=== PATIENT | female | born 1985 | race Caucasian/White ===

== ENCOUNTER 2022-02-01 14:23 | Day surgery (SDC) | payer OTHER ==
[~2022-02-01] VITALS: Ht 170.2 cm; Wt 58.3 kg
--- NOTE | ~2022-02-01 | OR ---
[facility] [address], [place] [address] Draft DATE OF OPERATION: SURGEON: Celestino Heart DO PREOPERATIVE DIAGNOSES: 1. Right adnexal mass. 2. Possible right ovarian torsion. POSTOPERATIVE DIAGNOSES: 1. Right endometrioma. 2. Stage IV endometriosis. PROCEDURE PERFORMED: Laparoscopic right ovarian cystotomy. TEACHING MANAGER: Saad Hutton MD ANESTHESIA: General. ESTIMATED BLOOD LOSS: 10 mL. FINDINGS: Normal external genitalia with normal clitoris, urethral meatus, bilateral [place]'s, and Bartholin's. Normal vagina and cervix. On bimanual exam, retroflexed uterus with minimal movement of the pelvic organs. Right adnexal mass consistent with findings on the ultrasound. On laparoscopy, the patient with extensive endometriosis with dense deep infiltrating endometrial implants throughout the abdomen and pelvis. Implants include on the diaphragm, bowel, appendix and pelvis with obliterated cul-de-sac. The patient with a large right endometrioma with no evidence of ovarian torsion. Left ovary nearly completely scarred, adherent to the colon and uterus. Endometrioma was completely drained and hemostatic at the end of the procedure. COMPLICATIONS: None. INDICATIONS: Ms. Loaiza is a pleasant 36-year-old, G0, P0 white female who presented to the emergency department with acute exacerbation of chronic pelvic pain with severe 10/10 PATIENT NAME: APOLINAR HARRIS OPERATIVE REPORT DATE OF : 83 REPORT #: [id number] PHYSICIAN: CELESTINO HEART DO PCP: [facility] REPORT IS CONFIDENTIAL AND NOT TO BE RELEASED WITHOUT AUTHORIZATION [facility] [address], [place] [address] Draft pain for nearly 1 week. Pain started approximately four days after the onset of her last period. The patient has a long history of dysmenorrhea and dyspareunia. Ultrasound demonstrated a large right ovarian mass consistent with endometrioma or hemorrhagic cyst with concern for ovarian torsion. The patient was consented for laparoscopy and risks, benefits, and alternatives were discussed in detail with the patient. The patient understands and wished to proceed with the procedure. TECHNIQUE: The patient was taken to the operating room. A time-out was performed to confirm correct patient and correct procedure. General anesthesia was adequately established. The patient was prepped and draped in the dorsal lithotomy position with her feet in Yellofin stirrups. ICPs were on and running. No preoperative antibiotics were indicated and the patient received 5000 units of heparin preoperatively. A Mcmillan catheter was inserted and after performance of bimanual exam demonstrated the above findings. An Allis clamp was placed on the anterior lip of the cervix and the cervix was gently dilated using Hegar dilators. A Hulka clamp was placed and attention was turned to the abdomen. A 2 cm below the umbilicus was infiltrated with 0.25% Marcaine with epinephrine and a curvilinear incision approximately 2-3 cm in length was made with an 11 blade. Incision was carried down to the fascia, which was grasped with hemostats, elevated and entered sharply with Metzenbaum scissors. Stay sutures of 0 Vicryl were placed in the inferior and superior edge of the fascial incision and the peritoneum was entered bluntly. Chely operative port was then placed and pneumoperitoneum easily established. Operative scope was placed and survey of the abdomen and pelvis was performed that demonstrated significant dense deep infiltrating endometriosis throughout the abdomen and pelvis including the diaphragm bilaterally, bowel, appendix, pelvic peritoneum, bladder and pelvis. Cul-de-sac was obliterated. Right ovary with mass consistent with endometrioma with no evidence of torsion. The left ovary was nearly completely buried in scar tissue and endometriosis involving the left adnexum, the colon and the uterus. An assist port was placed in the left lower quadrant under direct visualization without complication. Again, the right ovary was not torsed and pelvic organs were densely scarred and adherent. Decision was made to proceed with cystotomy. Laparoscopic tony were used to carefully create cystotomy with monopolar energy with careful attention to follow the course of the surgical tony to ensure well away from the other pelvic organs and bowel. The endometrioma was opened and copious amounts of chocolate colored endometrioma fluid spilled into the pelvis. The endometrioma was irrigated and all cyst contents were suctioned. The cyst was irrigated and a small amount of oozing was noted along the cystotomy edge. This was made hemostatic with judicious use of monopolar cautery with careful attention to monitor the length of the graspers used to perform monopolar cautery. The pelvis was copiously irrigated to ensure that all endometrioma cyst contents were removed. Photographic survey was performed to help surgical planning in the future. Pneumoperitoneum was reduced. Trocars were removed and fascia was reapproximated using 0 Vicryl in a running nonlocked PATIENT NAME: APOLINAR HARRIS OPERATIVE REPORT DATE OF : 83 REPORT #: [id number] PHYSICIAN: CELESTINO HEART DO PCP: [facility] REPORT IS CONFIDENTIAL AND NOT TO BE RELEASED WITHOUT AUTHORIZATION [address] [address] Draft manner. Skin was reapproximated using 4-0 Monocryl. The Hulka clamp was removed and the cervix was found to be hemostatic. The Mcmillan catheter was removed. The patient was taken to the PACU in good and stable condition. Sponge, needle, instrument counts were correct x2 at the end of the procedure. Dr. Hutton was present and participated in all portions of the procedure. Celestino Heart DO JDW/MODL /[id number] Copies: ~ PATIENT NAME: APOLINAR HARRIS OPERATIVE REPORT DATE OF : 83 REPORT #: [id number] PHYSICIAN: CELESTINO HEART DO PCP: [facility] REPORT IS CONFIDENTIAL AND NOT TO BE RELEASED WITHOUT AUTHORIZATION
--- NOTE | ~2022-02-01 | PREHP ---
[facility] [address], [place] [address] Draft ADMISSION DATE: 02/01/2022 CHIEF COMPLAINT: Abdominal pain. HISTORY OF PRESENT ILLNESS: Ms. Loaiza is a pleasant 36-year-old G0, P0 white female, who presented to the emergency department with 1-week history of intermittent worsening abdominal pain that has gotten significantly worse in the past 24 hours. Menarche at age 14 and menstrual cycles are regular. The patient reports severe painful periods always that have become "unbearable" for the past 1-2 years. The patient reports that she started menstrual cycle approximately 10 days ago and approximately cycle day 4, symptoms began with severe intermittent pain. She reports pain up the center of her abdomen that causes her "whole body to seize." Pain is so severe that it causes her to curl up in a ball and is intermittent coming every 2-5 minutes. Nothing seems to help the pain. She has never had pain like this previously. The patient does report a history of severe deep dyspareunia with no insertional pain. Her periods were improved while she was on OCPs in the past. She is not currently on any hormonal contraception and she is not currently sexually active. The patient complains of some nausea with her pain. She also complains of depress mood over the past week. PAST MEDICAL HISTORY: Positive only for insomnia. PAST SURGICAL HISTORY: No prior surgical history. ALLERGIES: Septra causes hives. FAMILY HISTORY: Breast and colon cancer in 2nd and 3rd degree relatives. Not currently taking any medication. SOCIAL HISTORY: She does not smoke and she uses marijuana daily and occasional alcohol 1 drink every 1-2 months. REVIEW OF SYSTEMS: A complete review of systems was performed and negative except per HPI. PHYSICAL EXAMINATION: VITAL SIGNS: Temperature of 98.4, pulse is 64, respiratory rate 16, blood pressure PATIENT NAME: APOLINAR HARRIS PREOPERATIVE H&P DATE OF : 83 REPORT #: [id number] PHYSICIAN: CELESTINO BATRES DO PCP: [facility] REPORT IS CONFIDENTIAL AND NOT TO BE RELEASED WITHOUT AUTHORIZATION [facility] [address], [place] [address] Draft 112/62, pulse ox 98% on room air. GENERAL: The patient is in acute distress, lying in a hospital gurney with her mother at her side. She laid on her left side somewhat curled up secondary to the pain. HEENT: Normocephalic, atraumatic. NECK: Supple. Trachea midline. No masses. HEART: Regular rate and rhythm. LUNGS: Clear to auscultation bilaterally. ABDOMEN: Soft with no rebound or guarding. The patient does have a palpable mass in the left adnexa just above the hip that is tender to touch. PELVIC: Exam was deferred, but will be performed in the operating room. EXTREMITIES: No edema. LABORATORY DATA: WBCs 8.2, hemoglobin 13.4, hematocrit 42.2, platelets 256. Sodium 137, potassium 3.6, chloride 100, carbon dioxide 28, BUN 5, creatinine 0.71, glucose 91, AST 12, ALT 19. HCG negative. Urine normal. Gonorrhea and chlamydia were collected by the ER physician and results are pending. COVID and influenza tests are negative. Imaging pelvic ultrasound was performed that demonstrates a 9.3 x 3.7 x 4.2, uterus with no focal myometrial abnormalities. The endometrium is 10 mm. Left ovary 2.1 x 3.5 x 2.8 cm with a 1.9 cm follicle. The right ovary is 7.2 x 8.4 x 5.5 cm with a large cystic lesion with homogeneous internal echoes 6.6 x 8.3 x 4.8 cm with normal Doppler flows. She also has a small simple cyst 3.1 x 2.1 x 3.2 cm adjacent to likely hemorrhagic cyst versus endometrioma. ASSESSMENT: 1. Right ovarian mass consistent with endometrioma or hemorrhagic cyst with likely ovarian torsion. 2. Possible endometriosis. 3. Dysmenorrhea. 4. Dyspareunia. PLAN: The patient with right ovarian mass that is a bit suspicious for causing ovarian torsion. There is present ovarian blood flow, however, this is poorly correlated with presence or absence of torsion. The patient is very tender on exam and warrants emergent laparoscopy and management of the adnexa. Discussed possible surgical outcomes including detorsing ovary with cystectomy if possible, but if necrotic appearing adnexa, I would then perform unilateral salpingo-oophorectomy. Risks, benefits, and alternatives were discussed in detail with the patient. Risks include, but are not limited to, infection, bleeding, or injury to surrounding GI, structures, PE. The patient understands and wishes to proceed with the procedure. The OR crew and Anesthesia notified en route. Dr. Hutton was notified and will assist. Discussed possible endometriosis and possible intervention should endometriosis be encountered including possible resection. No preoperative antibiotics are indicated. However, we PATIENT NAME: APOLINAR HARRIS PREOPERATIVE H&P DATE OF : 83 REPORT #: [id number] PHYSICIAN: CELESTINO BATRES DO PCP: [facility] REPORT IS CONFIDENTIAL AND NOT TO BE RELEASED WITHOUT AUTHORIZATION [facility] [address] [place] [address] Draft will give heparin 5000 units preoperatively. All questions were answered to the best of my ability and the patient's apparent satisfaction. We will proceed to the OR as planned. DO MARANDA Gregorio/JUAN /[id number] Copies: ~ PATIENT NAME: APOLINAR HARRIS PREOPERATIVE H&P DATE OF : 83 REPORT #: [id number] PHYSICIAN: CELESTINO BATRES DO [facility] REPORT IS CONFIDENTIAL AND NOT TO BE RELEASED WITHOUT AUTHORIZATION
--- NOTE | 2022-02-01 22:45 | NUR ---
02/01/222244 Dominique Conley 223 PATIENT ARRIVES TO PACU UNRESPONSIVE TO PAIN. ORAL AIRWAY IN PLACE. ALSO REQUIRES JAW THRUST TO MAINTAIN PATENT AIRWAY. RESP EVEN AND UNLABORED, WITH INTERVENTION, MASK AT 10 LITERS. 2241 PATIENT CONTINUES TO BE UNRESPONSIVE TO PAIN, BUT SWALLOWING AGAINST ORAL AIRWAY. ORAL AIRWAY LEFT IN PLACE. RESP EVEN AND UNLABORED, NO LONGER REQUIRES JAW THRUST. OXYGEN DECREASED TO 6 LITERS.
--- NOTE | 2022-02-01 23:44 | NUR ---
2310 - PT ARRIVED VIA BED FROM PACU, DROWSY, ORIENTED, COOPERATIVE. 2330- DR BATRES GAVE REPORT TO MOTHER. PT ON ROOM AIR, LUNGS CLEAR BILAT ABD SOFT TENDER, 2 LAP ABD SITES COVERED WITH SS AND BANDAIDS, SLIGHT DISTENTION LOWER ABD. BLAINE, SCDS IN PLACE. NOT PASSING GAS AT THIS TIME. 2339- UP TO BR, VOIDED 200CC CLEAR YELLOW URINE, SLIGHT VAG DRAINGE NOTED. BACK TO BED, TOLERATED WEL,, ICE CHIPS, FLUIDS JELLO AND APPLE JUICE AT BEDSIDE, TOOK SIPS. IVF INFUSING RAC, CPOX POST OP IN PLACE. MOTHER AT BEDSIDE
--- NOTE | 2022-02-02 00:30 | NUR ---
PT AWAKES EASILY, ON ROOM AIR, NO C/O PAIN, TOLERATING SIPS OF FLUIDS WELL, NO EMESIS. ABD SOFT, BLAINE, NOT PASSING GAS AT THIS TIME, LAP SITES UNCHANGED, SCDS IN PLACE, TURNS AND REPOSITIONS SELF IN BED. SL AT THIS TIME, CALL LIGHT AND FLUIDS AT HANDS REACH, MOTHER IN ROOM.
--- NOTE | 2022-02-02 01:22 | NUR ---
ON ROOM AIR, AWAKES EASILY, NO C/O PAIN, NO N/V. SL AT THIS TIIME, TOLERATING SIPS OF FLUIDS WELL, NO EMESIS. SCDS IN PLACE, MOTHER AT BEDSIDE,
--- NOTE | 2022-02-02 03:00 | NUR ---
PT CALLED, ASSIST UP TO THE TOILET, SBA, BACK TO BED, RM IN ROOM, NO FURTHER NEEDS AT THIS TIME
--- NOTE | 2022-02-02 03:14 | NUR ---
up to br, 1pa, voided, tolerated wel,, back to bed. On room air. coop with assessment. abd no changes, 2 lap sites intact, c/o 4/10 abd pain, medicated with 1 [place] and 1 Simethacone tab. scant amount of vaginal drainage. emilie pad inplace. scds inplace, tolerating sips of fluids well, no emesis. turns and repositions self in bed
--- NOTE | 2022-02-02 04:44 | NUR ---
Pt on room air, has slept most of this shift. Has met criteria to dc. tolerating liquids, no emesis, has voided QS. abd soft, tender, slight distention lower abd 2 lap sites ss covered with bandaids in place. ruddy, no c/o passing gas at thist umm. Up to Br several times and back to bed, tolerating well, was medicated with [place] 1 tabs and Simethacone per abd pain. scds in place. Turns and repositions self in bed. family in room.
--- NOTE | 2022-02-02 05:27 | NUR ---
RESTING, ON ROOM AIR, EYES CLOSED, NO FURTHER S/S ABD PAIN. TURNS AND REPOSITIONS SELF, CALL LIGHT AND FLUIDS AT BEDSIDE
--- NOTE | 2022-02-02 08:37 | NUR ---
Report received from night worker RN. Pt is in bed with her mother at bedside. Up to BR with SBA. Pt reports significantly improved pain this AM upon assessment w/ discomfort upon abdominal palpation. Abdomen is soft and tender; bowel tones active- pt denies passing gas as of this time. Dr. Heart sitting at bedside to discuss plan with pt and her mother. Pt will discharge home this AM. Pt is currently eating breakfast w/ good appetite and adequate fluid intake. VSS. Pt verbalizes needs appropriately. Call light within reach. Will cont to monitor.
[2022-02-02] MEDS ORDERED: HYDROCODON-ACE1 EA10 PO (09:30)
[2022-02-02] MEDS ORDERED: IBU800 MG PO (09:30)
--- NOTE | 2022-02-02 09:31 | NUR ---
MED REC COMPLETE
--- NOTE | 2022-02-02 10:00 | NUR ---
Discharge instructions provided to pt w/ additional endometriosis education. Pharmacist in to review Rx with pt. Iv removed w/ tip intact. VS: T 97.4 HR 75 RR 20 BP 111/55 O2 sat 100% on RA. All of pt's questions answered. Follow-up appt scheduled and appointment card provided to pt along w/ discharge paperwork.
== END 2022-02-02 10:17 | disposition home or self-care (01) ==
LOC: ED 14:23 → DS 20:59 → MS 21:00 → DS 02-02 10:17
PROVIDERS: ATTEND Obstetrics & Gynecology
PROC: 0D9 Gastrointestinal System, Drainage (ICD-10-PCS; principal; 2022-02-01 21:57)
DX: N80.1 Endometriosis of ovary (principal); N94.6 Dysmenorrhea, unspecified; N94.10 Unspecified dyspareunia; Z88.2 Allergy status to sulfonamides; Z88.1 Allergy status to other antibiotic agents; Z80.0 Family history of malignant neoplasm of digestive organs; Z80.3 Family history of malignant neoplasm of breast; Z20.822 Contact with and (suspected) exposure to COVID-19
CPT/HCPCS: 36415; 76830; 76856; 80053; 81001; 83690; 83735; 84703; 85025; 87491; 87502; 94762; 96374; 96375; 99285-25; A9270; C9803; J0131; J0330; J1100; J1170; J1644; J1885; J2250; J2405; J2704; J2765; J3010; J7030; J7121; U0003

== ENCOUNTER 2022-03-04 00:25 | Emergency (ER) | payer OTHER ==
[~2022-03-04] VITALS: Ht 170.2 cm; Wt 59.0 kg
[~2022-03-04 00:25] MED LIST: HYDROCODON-ACE1 EA10 PO; IBU800 MG PO
--- OUTSIDE RECORDS SUMMARY | 2022-03-04 00:28 | XMS ---
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 EShabbir VISIT COUNT (12 MO.) 2 SUZANNE Lin TOTAL 2 NOTE: Visits indicate total known visits. ED/UCC VISIT TRACKING (12 MO.) 03/04/2022 00:26 [facility] OR TYPE: Emergency COMPLAINT: - ABD PAIN 02/01/2022 14:24 SU[facility]ANNE Galvez OR TYPE: Emergency COMPLAINT: - ABDOMINAL PAIN INPATIENT VISIT TRACKING (12 MO.) No inpatient visits to display in this time frame [email or web address]
== END 2022-03-04 01:25 | disposition home or self-care (01) ==
LOC: ED 00:25
DX: R10.2 Pelvic and perineal pain (principal); N80.1 Endometriosis of ovary
CPT/HCPCS: 36415; 81001; 84703; 85025

== ENCOUNTER 2022-09-09 19:33 | Emergency (ER) | payer OTHER ==
[~2022-09-09] VITALS: Ht 170.2 cm; Wt 59.0 kg
--- OUTSIDE RECORDS SUMMARY | 2022-09-09 19:36 | XMS ---
PreManage Notification: APOLINAR HARRIS Security Anesthesia Assistant Events No recent Security Events currently on file CRITERIA MET - PDMP CARE PROVIDERS ALEX COPE Obstetrics \T\ Gynecology: Gynecologic Oncology Current PHONE: [phone] Chari has no Care Guidelines for this patient. EShabbir VISIT COUNT (12 MO.) 3 SUZANNE Lin TOTAL 3 NOTE: Visits indicate total known visits. ED/UCC VISIT TRACKING (12 MO.) 09/09/2022 19:35 SUZANNE Galvez OR TYPE: Emergency COMPLAINT: - BACK AND ABD PAIN 03/04/2022 00:26 SUZANNE Galvez OR TYPE: Emergency COMPLAINT: - ABD PAIN DIAGNOSES: - Endometriosis of ovary - Pelvic and perineal pain 02/01/2022 14:24 SU[facility] Galvez [place] TYPE: Emergency COMPLAINT: - ABDOMINAL PAIN INPATIENT VISIT TRACKING (12 MO.) 03/13/2022 08:37 [facility] TYPE: Surgery DIAGNOSES: - Endometriosis, unspecified - Endometriosis, unspecified [email or web address]
[2022-09-09] MEDS ORDERED: TRAZODONE HCL50 MG PO (20:38)
[2022-09-09] MEDS ORDERED: PREDNISONE20 MG PO (23:24)
[2022-09-09] MEDS ORDERED: HYDROCODON-ACE1 EA10 PO (23:24)
== END 2022-09-09 23:44 | disposition home or self-care (01) ==
LOC: ED 19:33
DX: R10.84 Generalized abdominal pain (principal); Z88.2 Allergy status to sulfonamides; Z88.8 Allergy status to other drugs, medicaments and biological substances
CPT/HCPCS: 36415; 74177; 80053; 81003; 83690; 84703; 85025; 99284-25; A9270; J1885; J7512; Q9967

== ENCOUNTER 2022-12-06 22:15 | Emergency (ER) | payer OTHER ==
[~2022-12-06] VITALS: Ht 170.2 cm; Wt 57.8 kg
[~2022-12-06 22:15] MED LIST changes: +PREDNISONE20 MG PO; +TRAZODONE HCL50 MG PO
--- OUTSIDE RECORDS SUMMARY | 2022-12-06 22:18 | XMS ---
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 Sarah VISIT COUNT (12 MO.) Madison Lin TOTAL 4 NOTE: Visits indicate total known visits. ED/UCC VISIT TRACKING (12 MO.) 12/06/2022 22:16 [facility] Gal[facility] OR TYPE: Emergency COMPLAINT: - PELVIC PAIN 09/09/2022 19:35 SU[facility] OR TYPE: Emergency COMPLAINT: - BACK AND ABD PAIN DIAGNOSES: - Generalized abdominal pain - Allergy status to sulfonamides - Allergy status to other drugs, medicaments and biological substances 03/04/2022 00:26 [facility] [place] TYPE: Emergency COMPLAINT: - ABD PAIN DIAGNOSES: - Pelvic and perineal pain - Endometriosis of ovary [facility] COMPLAINT: - ABDOMINAL PAIN INPATIENT VISIT TRACKING (12 MO.) 03/13/2022 08:37 [facility] TYPE: Surgery DIAGNOSES: - Endometriosis, unspecified - Endometriosis, unspecified [email or web address]
[2022-12-06] MEDS ORDERED: ESTARYLLA1 EACH PO (22:29)
== END 2022-12-06 23:36 | disposition home or self-care (01) ==
LOC: ED 22:15
DX: R10.2 Pelvic and perineal pain (principal); Z88.2 Allergy status to sulfonamides
CPT/HCPCS: 36415; 80053; 81001; 83690; 84703; 85025; 99284; A9270